=== PATIENT | female | born 1945 | race Two or more races ===

== ENCOUNTER 2019-03-22 07:57 | Outpatient (CLI) | payer OTHER | END 2019-03-22 09:10 | disposition home or self-care (01) | LOC: SONOGRAMA 07:57 | DX: E04.2 Nontoxic multinodular goiter (principal) ==

== ENCOUNTER 2019-07-02 08:52 | Outpatient (CLI) | payer OTHER | END 2019-07-02 08:57 | disposition home or self-care (01) | LOC: SONOGRAMA 08:52 | DX: E04.2 Nontoxic multinodular goiter (principal) ==